=== PATIENT | male | born 1955 | race Caucasian/White ===

== ENCOUNTER 2020-04-16 11:37 | Emergency (ER) | payer BC ==
--- NOTE | 2020-04-16 11:52 | PCM.EKG ---
#1 Interpretation EKG Date: 04/16/20 Time: 11:44 Rhythm: NSR Rate (Beats/Min): 83 [place]: Normal P-Wave: Present QRS: Normal ST-T: Normal QT: Normal [place]/PQ Interval: 189 Comparison: NA - No Prior EKG EKG Interpretation Comments: No prior for comparison, no overt acute ischemic changes, some T wave flattening in lead I, T wave inversion in aVL.
[2020-04-16] MEDS ORDERED: Sodium Chloride 0.9% 2.5 ML Syringe FLUSH PRN (12:30)
[2020-04-16] MEDS ORDERED: Sodium Chloride 0.9% 10 ML Syringe FLUSH PRN (12:30)
--- NOTE | 2020-04-16 12:37 | EDM.PDOC ---
ED HPI GENERAL MEDICAL PROBLEM - General Chief Complaint: Chest Pain Stated Complaint: TIGHTNESS IN CHEST Time Seen by Provider: 04/16/20 11:42 Source of Information: Reports: Patient History Limitations: Reports: No Limitations - History of Present Illness INITIAL COMMENTS - FREE TEXT/NARRATIVE: HISTORY AND PHYSICAL: History of present illness: 64-year-old male presents to the ED with intermittent chest pain and dizziness that began on 04/11/20. Patient states that he began working in his enclosed garage on the morning of 04/11/20, it was then that he began expe riencing substernal chest pain described as "dull." Patient reports intermittent dizziness beginning on 04/12/20, also while working in his garage. Patient states symptoms would resolve whenever he went into his house and sat down but does have dizziness and chest pain intermittently without being in the garage since Patient also notes increased fatigue and diaphoresis x2 days. Patient reports the last time he worked in his shop was the morning of 04/16/20; last exposure at 10 AM. Patient denies fever, chills, shortness of breath, or cough. Denies headache, neck stiff ness, change in vision, syncope, or near syncope. Denies nausea, vomiting, abdominal pain, diarrhea, constipation, or dysuria. Has not noted any blood in urine or stool. Patient has been eating and drinking appropriately. Review of systems: As per history of present illness and below otherwise all systems reviewed and negative. Past medical history: As per history of present illness and as reviewed below otherwise noncontributory. Surgical history: As per history of present illness and as reviewed below otherwise noncontributory. Social history: See social history for further information Family history: As per history of present illness and as reviewed below otherwise noncontributory. Physical exam: General: Patient is alert, oriented, and in no acute distress. Patient sitting comfortably on exam table. Vitals stable and reviewed by me. HEENT: Atraumatic, normocephalic, pupils equal and reactive bilaterally, negative for conjunctival pallor or scleral icterus, trachea midline. No drooling or trismus noted. No meningeal signs. No hot potato voice noted. Lungs: Clear to auscultation, breath sounds equal bilaterally, chest nontender. Heart: S1S2, regular rate and rhythm without overt murmur Abdomen: Soft, nondistended, nontender. Negative for masses or hepatosplenomegaly. Negative for costovertebral tenderness. Pelvis: Stable nontender. Genitourinary: Deferred. Rectal: Deferred. Skin: Intact, warm, dry. No lesions or rashes noted. Extremities: Atraumatic, negative for cords or calf pain. Neurovascular unremarkable. Neuro: Awake, alert, oriented. Cranial nerves II through XII unremarkable. Cerebellum unremarkable. Motor and sensory unremarkable throughout. Exam nonfocal. Notes: Dr. Urbano verbally involved in patient care. Poison control was contacted and updated on patient's status (elevated carboxyhemoglobin and troponin). They suggested contacting [facility] for consult concerning hyperbaric chamber treatment. Luke declined need for hyperbaric treatment and recommended rechecking troponin levels every 2 hours. Called and spoke to Dr. Gonzalez, ER at [facility] and thoroughly discussed patient's case. Accepting of patient transfer. EMS pickup arranged. Patient remains stable throughout stay in ED and chest pain-free. Repeat EKG shows no acute changes. Diagnostics: CBC, CMP, UA, Troponin, Lipase, Carboxyhemoglobin, Chest XR, ECG x2, Delta Troponin Therapeutics: Normal Saline, Heparin, Aspirin 243mg (patient took 81mg at home), 15L O2 nonrebreather Impression: NSTEMI Plan: Transfer to Dr. Gonzalez, ROBERTO at [facility] via EMS. Definitive disposition and diagnosis as appropriate pending reevaluation and review of above. - Related Data Allergies Allergy/AdvReac Type Severity Reaction Status Date / Time No Known Allergies Allergy Verified 05/03/16 15:50 Home Meds: Home Meds Cholecalciferol (Vitamin D3) [Vitamin D3] 400 PO DAILY 04/16/20 [History] Multivit-Min/FA/Lycopen/Lutein [Centrum Silver Tablet] 1 PO DAILY 04/16/20 [History] Pravastatin Sodium [Pravachol] 40 mg PO DAILY 04/16/20 [History] Past Medical History HEENT History: Reports: Impaired Vision, Sinusitis Musculoskeletal History: Reports: Other (See Below) Other Musculoskeletal History: generalized aches - ever since transplant Oncologic (Cancer) History: Reports: Lymphoma, Other (See Below) Other Oncologic History: Auto stem cell transplant, ALLERGIST/MD lymphoma - Infectious Disease History Infectious Disease History: Reports: Chicken Pox - Past Surgical History HEENT Surgical History: Reports: Naso-Sinus Surgery Musculoskeletal Surgical History: Reports: Shoulder Surgery Social & Family History - Family History Family Medical History: No Pertinent Family History - Tobacco Use Tobacco Use Status *Q: Never Tobacco User Second Hand Smoke Exposure: No - Caffeine Use Caffeine Use: Reports: Coffee - Recreational Drug Use Recreational Drug Use: No ED ROS GENERAL - Review of Systems Review Of Systems: Comprehensive ROS is negative, except as noted in HPI. ED EXAM, GENERAL - Physical Exam Exam: See Below (see dictation) Course - Vital Signs Last Recorded V/S: Last Vital Signs Temp 98.2 F 04/16/20 12:12 Pulse 77 04/16/20 17:15 Resp 16 04/16/20 17:15 BP 132/86 04/16/20 17:15 Pulse Ox 100 04/16/20 17:15 Orthostatic Blood Pressure [ 147/86 Standing] Orthostatic Blood Pressure [ 139/78 Sitting] Orthostatic Blood Pressure [ 132/81 Supine] - Orders/Labs/Meds Orders: Active Orders 24 hr Category Date Time Status PTT,PARTIAL THROMBOPLSTIN TIME [COAG] Q6H Lab 04/16/20 14:00 Ordered Saline Lock Insert [OM.PC] Stat Oth 04/16/20 12:30 Ordered Labs: Laboratory Tests 04/16/20 04/16/20 04/16/20 Range/Units 12:30 12:30 12:30 WBC 6.55 (4.0-11.0) K/uL RBC 4.02 L (4.50-5.90) M/uL Hgb 13.4 (13.0-17.0) g/dL Hct 39.2 (38.0-50.0) % MCV 97.5 (80.0-98.0) fL MCH 33.3 H (27.0-32.0) pg MCHC 34.2 (31.0-37.0) g/dL RDW Std Deviation 47.3 (28.0-62.0) fl RDW Coeff of Radha 13 (11.0-15.0) % Plt Count 255 (150-400) K/uL MPV 8.50 (7.40-12.00) fL Neut % (Auto) 73.6 (48.0-80.0) % Lymph % (Auto) 17.4 (16.0-40.0) % [place] % (Auto) 7.0 (0.0-15.0) % Eos % (Auto) 1.4 (0.0-7.0) % Baso % (Auto) 0.6 (0.0-1.5) % Neut # (Auto) 4.8 (1.4-5.7) K/uL Lymph # (Auto) 1.1 (0.6-2.4) K/uL [place] # (Auto) 0.5 (0.0-0.8) K/uL Eos # (Auto) 0.1 (0.0-0.7) K/uL Baso # (Auto) 0.0 (0.0-0.1) K/uL Nucleated RBC % 0.0 /100WBC Nucleated RBCs # 0 K/uL INR 0.97 APTT 23.6 (18.6-31.3) SEC ABG Carboxyhemoglobin (0-15) % Sodium 139 (136-148) mmol/L Potassium 4.5 (3.5-5.1) mmol/L Chloride 104 (98-107) mmol/L Carbon Dioxide 25.6 (21.0-32.0) mmol/L BUN 20 H (7.0-18.0) mg/dL Creatinine 1.0 (0.8-1.3) mg/dL Est Cr Clr Drug Dosing 86.77 mL/min Estimated GFR (MDRD) > 60.0 ml/min Glucose 106 (74-106) mg/dL Calcium 9.2 (8.5-10.1) mg/dL Total Bilirubin 0.3 (0.2-1.0) mg/dL AST 15 (15-37) IU/L ALT 25 (14-63) IU/L Alkaline Phosphatase 76 (46-116) U/L Troponin I 0.125 H* (0.000-0.056) ng/mL Total Protein 6.9 (6.4-8.2) g/dL Albumin 3.7 (3.4-5.0) g/dL Globulin 3.2 (2.6-4.0) g/dL Albumin/Globulin Ratio 1.2 (0.9-1.6) Lipase (73-393) U/L Urine Color Urine Appearance Urine pH (5.0-8.0) Ur Specific [place] (1.001-1.035) Urine Protein (NEGATIVE) mg/dL Urine Glucose (UA) (NEGATIVE) mg/dL Urine Ketones (NEGATIVE) mg/dL Urine Occult Blood (NEGATIVE) Urine Nitrite (NEGATIVE) Urine Bilirubin (NEGATIVE) Urine Urobilinogen (<2.0) EU/dL Ur Leukocyte Esterase (NEGATIVE) 04/16/20 04/16/20 04/16/20 Range/Units 12:51 12:51 12:55 WBC (4.0-11.0) K/uL RBC (4.50-5.90) M/uL Hgb (13.0-17.0) g/dL Hct (38.0-50.0) % MCV (80.0-98.0) fL MCH (27.0-32.0) pg MCHC (31.0-37.0) g/dL RDW Std Deviation (28.0-62.0) fl RDW Coeff of Radha (11.0-15.0) % Plt Count (150-400) K/uL MPV (7.40-12.00) fL Neut % (Auto) (48.0-80.0) % Lymph % (Auto) (16.0-40.0) % [place] % (Auto) (0.0-15.0) % Eos % (Auto) (0.0-7.0) % Baso % (Auto) (0.0-1.5) % Neut # (Auto) (1.4-5.7) K/uL Lymph # (Auto) (0.6-2.4) K/uL [place] # (Auto) (0.0-0.8) K/uL Eos # (Auto) (0.0-0.7) K/uL Baso # (Auto) (0.0-0.1) K/uL Nucleated RBC % /100WBC Nucleated RBCs # K/uL INR APTT (18.6-31.3) SEC ABG Carboxyhemoglobin 2.2 (0-15) % Sodium (136-148) mmol/L Potassium (3.5-5.1) mmol/L Chloride (98-107) mmol/L Carbon Dioxide (21.0-32.0) mmol/L BUN (7.0-18.0) mg/dL Creatinine (0.8-1.3) mg/dL Est Cr Clr Drug Dosing mL/min Estimated GFR (MDRD) ml/min Glucose (74-106) mg/dL Calcium (8.5-10.1) mg/dL Total Bilirubin (0.2-1.0) mg/dL AST (15-37) IU/L ALT (14-63) IU/L Alkaline Phosphatase (46-116) U/L Troponin I (0.000-0.056) ng/mL Total Protein (6.4-8.2) g/dL Albumin (3.4-5.0) g/dL Globulin (2.6-4.0) g/dL Albumin/Globulin Ratio (0.9-1.6) Lipase 113 (73-393) U/L Urine Color YELLOW Urine Appearance CLEAR Urine pH 6.0 (5.0-8.0) Ur Specific [place] 1.010 (1.001-1.035) Urine Protein NEGATIVE (NEGATIVE) mg/dL Urine Glucose (UA) NEGATIVE (NEGATIVE) mg/dL Urine Ketones NEGATIVE (NEGATIVE) mg/dL Urine Occult Blood NEGATIVE (NEGATIVE) Urine Nitrite NEGATIVE (NEGATIVE) Urine Bilirubin NEGATIVE (NEGATIVE) Urine Urobilinogen 0.2 (<2.0) EU/dL Ur Leukocyte Esterase NEGATIVE (NEGATIVE) 04/16/20 Range/Units 14:40 WBC (4.0-11.0) K/uL RBC (4.50-5.90) M/uL Hgb (13.0-17.0) g/dL Hct (38.0-50.0) % MCV (80.0-98.0) fL MCH (27.0-32.0) pg MCHC (31.0-37.0) g/dL RDW Std Deviation (28.0-62.0) fl RDW Coeff of Radha (11.0-15.0) % Plt Count (150-400) K/uL MPV (7.40-12.00) fL Neut % (Auto) (48.0-80.0) % Lymph % (Auto) (16.0-40.0) % [place] % (Auto) (0.0-15.0) % Eos % (Auto) (0.0-7.0) % Baso % (Auto) (0.0-1.5) % Neut # (Auto) (1.4-5.7) K/uL Lymph # (Auto) (0.6-2.4) K/uL [place] # (Auto) (0.0-0.8) K/uL Eos # (Auto) (0.0-0.7) K/uL Baso # (Auto) (0.0-0.1) K/uL Nucleated RBC % /100WBC Nucleated RBCs # K/uL INR APTT (18.6-31.3) SEC ABG Carboxyhemoglobin (0-15) % Sodium (136-148) mmol/L Potassium (3.5-5.1) mmol/L Chloride (98-107) mmol/L Carbon Dioxide (21.0-32.0) mmol/L BUN (7.0-18.0) mg/dL Creatinine (0.8-1.3) mg/dL Est Cr Clr Drug Dosing mL/min Estimated GFR (MDRD) ml/min Glucose (74-106) mg/dL Calcium (8.5-10.1) mg/dL Total Bilirubin (0.2-1.0) mg/dL AST (15-37) IU/L ALT (14-63) IU/L Alkaline Phosphatase (46-116) U/L Troponin I 0.286 H* (0.000-0.056) ng/mL Total Protein (6.4-8.2) g/dL Albumin (3.4-5.0) g/dL Globulin (2.6-4.0) g/dL Albumin/Globulin Ratio (0.9-1.6) Lipase (73-393) U/L Urine Color Urine Appearance Urine pH (5.0-8.0) Ur Specific [place] (1.001-1.035) Urine Protein (NEGATIVE) mg/dL Urine Glucose (UA) (NEGATIVE) mg/dL Urine Ketones (NEGATIVE) mg/dL Urine Occult Blood (NEGATIVE) Urine Nitrite (NEGATIVE) Urine Bilirubin (NEGATIVE) Urine Urobilinogen (<2.0) EU/dL Ur Leukocyte Esterase (NEGATIVE) Meds: Medications Discontinued Medications Generic Name Dose Route Start Last Admin Trade Name Freq PRN Reason Stop Dose Admin Aspirin 324 mg 04/16/20 13:42 04/16/20 13:47 Aspirin PO 02/18/21 13:43 Not Given ONETIME ONE Aspirin 243 mg 04/16/20 13:45 04/16/20 13:52 Aspirin PO 04/16/20 13:46 243 mg ONETIME ONE Administration Heparin Sodium (Porcine) 4,000 units 04/16/20 13:44 04/16/20 13:53 Heparin Sodium IVPUSH 04/16/20 13:45 4,000 units ONETIME ONE Administration Protocol Sodium Chloride 1,000 mls @ 999 mls/hr 04/16/20 12:49 04/16/20 13:01 Normal Saline IV 04/16/20 13:49 999 mls/hr STAT ONE Administration Heparin Sodium/Sodium Chloride 500 mls @ 23.184 mls/hr 04/16/20 14:00 04/16/20 14:37 Heparin 25,000 Units In 1/2 Ns 500 Ml IV 12 units/kg/hr TITRATE LUCIANA 23.184 mls/hr Administration Protocol 12 UNITS/KG/HR Sodium Chloride 10 ml 04/16/20 12:30 04/16/20 13:01 Saline Flush FLUSH 10 ml ASDIRECTED PRN Administration Keep Vein Open Sodium Chloride 2.5 ml 04/16/20 12:30 04/16/20 13:03 Saline Flush FLUSH 2.5 ml ASDIRECTED PRN Administration Keep Vein Open Departure - Departure Time of Disposition: 18:30 Disposition: DC/Tfer to Acute Hospital 02 Condition: Fair Clinical Impression: NSTEMI (non-ST elevated myocardial infarction) - Discharge Information Referrals: Dion Hampton MD [Primary Care Provider] - Forms: ED Department Discharge Sepsis Event Note (ED) - Evaluation Sepsis Screening Result: No Definite Risk - Focused Exam Vital Signs: Vital Signs Temp Pulse Resp BP Pulse Ox 04/16/20 17:15 77 16 132/86 100 04/16/20 16:30 84 16 144/87 H 100 04/16/20 16:00 65 16 136/81 100 04/16/20 15:45 60 15 132/80 100 04/16/20 15:15 72 18 143/83 H 99 04/16/20 14:45 64 16 138/80 100 04/16/20 14:30 76 16 141/76 H 100 04/16/20 14:00 83 16 151/90 H 100 04/16/20 13:36 95 18 170/90 H 99 04/16/20 12:12 98.2 F 83 18 116/84 98 - My Orders Last 24 Hours: My Active Orders 04/16/20 12:30 Saline Lock Insert [OM.PC] Stat 04/16/20 14:00 PTT,PARTIAL THROMBOPLSTIN TIME [COAG] Q6H - Assessment/Plan Last 24 Hours: My Active Orders 04/16/20 12:30 Saline Lock Insert [OM.PC] Stat 04/16/20 14:00 PTT,PARTIAL THROMBOPLSTIN TIME [COAG] Q6H
[2020-04-16] MEDS ORDERED: Sodium Chloride 0.9% 1,000 ML IV ONE (12:49)
[2020-04-16 13:05] LABS: BLOOD UREA NITROGEN,BUN 20 mg/dL (7.0-18.0); CARBON DIOXIDE,CO2 25.6 mmol/L (21.0-32.0); CHLORIDE,CL 104 mmol/L (98-107); GLUCOSE RANDOM 106 mg/dL (74-106); POTASSIUM,K 4.5 mmol/L (3.5-5.1); SODIUM,NA 139 mmol/L (136-148)
[2020-04-16] MEDS ORDERED: Aspirin 81 MG Tab.Chew PO ONE ×2 (13:42→13:45)
[2020-04-16] MEDS ORDERED: Heparin Sodium 5,000 Units/ML Vial IVPUSH ONE (13:44)
--- NOTE | 2020-04-16 13:55 | CR ---
INDICATION: Chest pain. TECHNIQUE: Chest, 2 images. COMPARISON: None. FINDINGS: No focal consolidation, pleural effusion, or pneumothorax. Normal heart size and pulmonary vascularity. Mild elevation of the right hemidiaphragm. The bones are unremarkable. IMPRESSION: No acute cardiopulmonary findings. Dictated by Linda Cintron MD @ Apr 16 2020 1:52PM Signed by Dr. Linda Cintron @ Apr 16 2020 1:54PM
[2020-04-16] MEDS ORDERED: Heparin Sodium/0.45% NaCl 500 ML IV SCH (14:00)
--- NOTE | 2020-04-16 16:00 | PCM.EKG ---
#1 Interpretation EKG Date: 04/16/20 Time: 15:51 Rhythm: NSR Rate (Beats/Min): 71 [place]: Normal P-Wave: Present QRS: Normal ST-T: Normal QT: Normal [place]/PQ Interval: 191 Comparison: NA - No Prior EKG EKG Interpretation Comments: No dynamic change, nonischemic EKG
[2020-04-16 17:25] VITALS: BP 132/86; PULSE 77
== END 2020-04-16 17:25 ==
LOC: MW.ED 11:37
DX: I21.4 Non-ST elevation (NSTEMI) myocardial infarction (principal)
CPT/HCPCS: 36415; 71045; 80053; 81003; 82375; 83690; 84484; 85025; 85610; 85730; 93005; 96365; 96366; 96375; 99285; A9270; J1644; J7030; 93010; 99284

== ENCOUNTER 2021-02-26 11:08 | Emergency (ER) | payer MEDICARE, BC ==
[2021-02-26] MEDS ORDERED: Sodium Chloride 0.9% 10 ML Syringe FLUSH PRN (11:20)
[2021-02-26] MEDS ORDERED: Aspirin 81 MG Tab.Chew PO ONE ×2 (11:20→11:31)
[2021-02-26] MEDS ORDERED: Sodium Chloride 0.9% 2.5 ML Syringe FLUSH PRN (11:20)
--- NOTE | 2021-02-26 11:34 | EDM.PDOC ---
ED HPI GENERAL MEDICAL PROBLEM - General Chief Complaint: Chest Pain Stated Complaint: CHEST PAIN Time Seen by Provider: 02/26/21 11:19 - History of Present Illness INITIAL COMMENTS - FREE TEXT/NARRATIVE: History of present illness: [] About 1 AM the patient began to have a twinge of chest pain in the right side of his chest lateral to the sternum below the nipple. He went to sleep woke up about 5 AM. Since then he has fairly frequent 15-second twinges of pain in the right side of the chest in the same area. Is not associated with shortness of breath nausea or diaphoresis. Is not worse with exertion. There is nothing he can do to make it worse. Its not very severe. He has no pain at the time I examined him. The patient has a prior history of an [place] and he had significant pressure across most of his chest at that time. This is entirely different. The patient has 3 doses of Materna vaccine this year. Review of systems: As per history of present illness and below otherwise all systems reviewed and negative. Past medical history: As per history of present illness and as reviewed below otherwise noncontributory. Surgical history: As per history of present illness and as reviewed below otherwise noncont ributory. Social history: No reported history of drug or alcohol abuse. Family history: As per history of present illness and as reviewed below otherwise noncontributory. Physical exam: Constitutional - well developed, well-nourished and in no acute distress HEENT - normocephalic, no evidence of trauma - external nose and mouth normal - no mass in neck and no JVD - mucosae moist EYES - full EOM, PERRL, no icterus - no evidence of inflammation, injection, or drainage Respiratory - no respiratory distress, equal bilateral expansion, lungs clear to auscultation and no abnormal lung sounds Cardiovascular - Regular Rhythm with S1 and S2 appreciated and no murmur, gallop or rub. GI - abdomen soft without distension or organomegaly - normal bowel sounds - no guard or rebound Musculoskeletal no gross deformity of long bones or joints - no tenderness, swelling or edema Neurologic - Alert and oriented times four - CN II-XII grossly intact - motor sensory and coordination symmetrically normal Psychiatric - appropriate mood and affect with normal thought content Hematologic - No petechiae or purpura - mucosa appropriate color and sclera not pale - normal nail bed color and refill Integument - no rash or evidence of trauma - normal turgor Diagnostics: [] Therapeutics: [] Impression: [] Plan: [] Definitive disposition and diagnosis as appropriate pending reevaluation and review of above. - Related Data Allergies Allergy/AdvReac Type Severity Reaction Status Date / Time No Known Allergies Allergy Verified 02/26/21 11:18 Home Meds: Home Meds Cholecalciferol (Vitamin D3) [Vitamin D3] 400 PO DAILY 04/16/20 [History] Multivit-Min/FA/Lycopen/Lutein [Centrum Silver Tablet] 1 PO DAILY 04/16/20 [History] Pravastatin Sodium [Pravachol] 40 mg PO DAILY 04/16/20 [History] Past Medical History HEENT History: Reports: Impaired Vision, Sinusitis Cardiovascular History: Reports: TN, Stents Other Cardiovascular History: TN in march. stents put in Musculoskeletal History: Reports: Other (See Below) Other Musculoskeletal History: generalized aches - ever since transplant Oncologic (Cancer) History: Reports: Lymphoma, Other (See Below) Other Oncologic History: Auto stem cell transplant, [employer] lymphoma - Infectious Disease History Infectious Disease History: Reports: Chicken Pox - Past Surgical History HEENT Surgical History: Reports: Naso-Sinus Surgery Musculoskeletal Surgical History: Reports: Shoulder Surgery Social & Family History - Family History Family Medical History: No Pertinent Family History - Caffeine Use Caffeine Use: Reports: Coffee ED ROS GENERAL - Review of Systems Review Of Systems: Comprehensive ROS is negative, except as noted in HPI. ED EXAM, GENERAL - Physical Exam Exam: See Below Free Text/Narrative:: My physical exam is in the HPI #1 Interpretation EKG Interpretation Comments: EKG done 02/26/2021 at 11:24 AM sinus rhythm heart rate 81 CO 195 QT duration 444 [place] VIII normal QRS except for RSR prime in V1 and V2 impression no acute injury Course - Vital Signs Last Recorded V/S: Last Vital Signs Temp 36.8 C 02/26/21 11:19 Pulse 86 02/26/21 11:19 Resp 16 02/26/21 11:19 BP 141/87 H 02/26/21 11:19 Pulse Ox 98 02/26/21 11:19 - Orders/Labs/Meds Orders: Active Orders 24 hr Category Date Time Status Sodium Chloride 0.9% [Saline Flush] Med 02/26/21 11:20 Active 10 ml FLUSH ASDIRECTED PRN Sodium Chloride 0.9% [Saline Flush] Med 02/26/21 11:20 Active 2.5 ml FLUSH ASDIRECTED PRN Saline Lock Insert [OM.PC] Stat Oth 02/26/21 11:20 Ordered Medication Orders Sodium Chloride (Sodium Chloride 0.9% 10 Ml Syringe) 10 ml FLUSH ASDIRECTED PRN PRN Reason: Keep Vein Open Last Admin: 02/26/21 11:34 Dose: 10 ml Documented by: JASON Sodium Chloride (Sodium Chloride 0.9% 2.5 Ml Syringe) 2.5 ml FLUSH ASDIRECTED PRN PRN Reason: Keep Vein Open Last Admin: 02/26/21 11:33 Dose: 2.5 ml Documented by: JASON Labs: Laboratory Tests 02/26/21 02/26/21 Range/Units 11:10 11:10 WBC 11.25 H (4.0-11.0) K/uL RBC 4.36 L (4.50-5.90) M/uL Hgb 14.2 (13.0-17.0) g/dL Hct 42.1 (38.0-50.0) % MCV 96.6 (80.0-98.0) fL MCH 32.6 H (27.0-32.0) pg MCHC 33.7 (31.0-37.0) g/dL RDW Std Deviation 47.2 (28.0-62.0) fl RDW Coeff of Radha 13 (11.0-15.0) % Plt Count 257 (150-400) K/uL MPV 8.70 (7.40-12.00) fL Neut % (Auto) 78.8 (48.0-80.0) % Lymph % (Auto) 14.3 L (16.0-40.0) % [place] % (Auto) 5.2 (0.0-15.0) % Eos % (Auto) 1.3 (0.0-7.0) % Baso % (Auto) 0.4 (0.0-1.5) % Neut # (Auto) 8.9 H (1.4-5.7) K/uL Lymph # (Auto) 1.6 (0.6-2.4) K/uL [place] # (Auto) 0.6 (0.0-0.8) K/uL Eos # (Auto) 0.2 (0.0-0.7) K/uL Baso # (Auto) 0.1 (0.0-0.1) K/uL Nucleated RBC % 0.0 /100WBC Nucleated RBCs # 0 K/uL Sodium 137 (136-148) mmol/L Potassium 4.4 (3.5-5.1) mmol/L Chloride 102 (98-107) mmol/L Carbon Dioxide 28.0 (21.0-32.0) mmol/L BUN 18 (7.0-18.0) mg/dL Creatinine 0.9 (0.8-1.3) mg/dL Est Cr Clr Drug Dosing 95.14 mL/min Estimated GFR (MDRD) > 60.0 ml/min Glucose 123 H (74-106) mg/dL Calcium 9.9 (8.5-10.1) mg/dL Total Bilirubin 0.6 (0.2-1.0) mg/dL AST 17 (15-37) IU/L ALT 34 (14-63) IU/L Alkaline Phosphatase 85 (46-116) U/L Troponin I < 0.050 (0.000-0.056) ng/mL Total Protein 7.4 (6.4-8.2) g/dL Albumin 3.8 (3.4-5.0) g/dL Globulin 3.6 (2.6-4.0) g/dL Albumin/Globulin Ratio 1.1 (0.9-1.6) Meds: Medications Generic Name Dose Route Start Last Admin Trade Name Freq PRN Reason Stop Dose Admin Sodium Chloride 10 ml 02/26/21 11:20 02/26/21 11:34 Sodium Chloride 0.9% 10 Ml Syringe FLUSH 10 ml ASDIRECTED PRN Administration Keep Vein Open Sodium Chloride 2.5 ml 02/26/21 11:20 02/26/21 11:33 Sodium Chloride 0.9% 2.5 Ml Syringe FLUSH 2.5 ml ASDIRECTED PRN Administration Keep Vein Open Discontinued Medications Generic Name Dose Route Start Last Admin Trade Name Freq PRN Reason Stop Dose Admin Aspirin 324 mg 02/26/21 11:20 Aspirin 81 Mg Tab.Chew PO 12/31/21 11:21 ONETIME ONE Aspirin 81 mg 02/26/21 11:31 02/26/21 11:33 Aspirin 81 Mg Tab.Chew PO 02/26/21 11:32 81 mg ONETIME ONE Administration Departure - Departure Time of Disposition: 12:13 Disposition: Home, Self-Care 01 Condition: Good Clinical Impression: Atypical chest pain - Discharge Information Instructions: Nonspecific Chest Pain, Adult, [id number] Forms: ED Department Discharge Additional Instructions: If you have any prolonged pain associated with shortness of breath and diaphoresis or any pain brought on by exertion you should return. In the meantime heat to the chest wall and anti-inflammatory medicine such as naproxen or ibuprofen are advised. [facility] [address] [place] [address] [place] [address] The following information is given to patients seen in the emergency department who are being discharged to home. This information is to outline your options for follow-up care. We provide all patients seen in our emergency department with a follow-up referral. The need for follow-up, as well as the timing and circumstances, are variable depending upon the specifics of your emergency department visit. If you don't have a primary care physician on staff, we will provide you with a referral. We always advise you to contact your personal physician following an emergency department visit to inform them of the circumstance of the visit and for follow-up with them and/or the need for any referrals to a consulting specialist. The emergency department will also refer you to a specialist when appropriate. This referral assures that you have the opportunity for follow-up care with a specialist. All of these measure are taken in an effort to provide you with optimal care, which includes your follow-up. Under all circumstances we always encourage you to contact your private physician who remains a resource for coordinating your care. When calling for follow-up care, please make the office aware that this follow-up is from your recent emergency room visit. If for any reason you are refused follow-up, please contact the [facility] Emergency Department at and asked to speak to the emergency department charge nurse. Sepsis Event Note (ED) - Evaluation Sepsis Screening Result: No Definite Risk - Focused Exam Vital Signs: Vital Signs Temp Pulse Resp BP Pulse Ox 02/26/21 11:19 36.8 C 86 16 141/87 H 98 - My Orders Last 24 Hours: My Active Orders 02/26/21 11:20 Sodium Chloride 0.9% [Saline Flush] 10 ml FLUSH ASDIRECTED PRN Sodium Chloride 0.9% [Saline Flush] 2.5 ml FLUSH ASDIRECTED PRN Saline Lock Insert [OM.PC] Stat - Assessment/Plan Last 24 Hours: My Active Orders 02/26/21 11:20 Sodium Chloride 0.9% [Saline Flush] 10 ml FLUSH ASDIRECTED PRN Sodium Chloride 0.9% [Saline Flush] 2.5 ml FLUSH ASDIRECTED PRN Saline Lock Insert [OM.PC] Stat
[2021-02-26 11:51] LABS: BLOOD UREA NITROGEN,BUN 18 mg/dL (7.0-18.0); CHLORIDE,CL 102 mmol/L (98-107); GLUCOSE RANDOM 123 mg/dL (74-106); POTASSIUM,K 4.4 mmol/L (3.5-5.1); SODIUM,NA 137 mmol/L (136-148)
--- NOTE | 2021-02-26 12:08 | CR ---
Indication: Chest pain, right-sided anterior. Technique: AP portable views of the chest. Comparison: April 16, 2020. Findings: The heart is normal in size. The lungs are clear. No infiltrate, pleural effusion, or pneumothorax is identified. Impression: No acute cardiopulmonary process Dictated by Brenda Brito MD @ 02/26/2021 12:06:51 PM (Electronically Signed)
[2021-02-26 12:31] VITALS: BP 120/81; PULSE 71
== END 2021-02-26 12:31 | disposition home or self-care (01) ==
LOC: MW.ED 11:08
DX: R07.89 Other chest pain (principal); I25.2 Old myocardial infarction; Z95.5 Presence of coronary angioplasty implant and graft; Z79.899 Other long term (current) drug therapy
CPT/HCPCS: 36415; 71045; 80053; 84484; 85025; 93005; 99285; A9270